=== PATIENT | female | born 1985 | race Caucasian/White ===

== ENCOUNTER 2019-11-26 05:35 | Inpatient (IN) | payer BC ==
[2019-11-25 19:21] LABS: BASOPHILS % (AUTO) 0.5 % (0.0-2.0); EOSINOPHILS # (AUTO) 0.1 K/uL (0.0-0.4); HEMATOCRIT 38.8 % (36-48); HEMOGLOBIN 13.2 g/dL (12.0-16.0); LYMPHOCYTES # (AUTO) 2.7 K/uL (1.0-5.5); LYMPHOCYTES % (AUTO) 27.8 % (20.5-51.5); MEAN CORPUSCULAR HEMOGLOBIN 32 pg (27-31); MEAN CORPUSCULAR HGB CONC 34 % (32-36); MEAN CORPUSCULAR VOLUME 95 fL (79.0-98.0); MONOCYTES # (AUTO) 0.7 K/uL (0.0-1.0); MONOCYTES % (AUTO) 6.7 % (1.7-9.3); NEUTROPHILS # (AUTO) 6.3 K/uL (1.8-7.7); PLATELET COUNT (AUTO) 169 K/uL (130-430); RED BLOOD CELL COUNT(AUTO) 4.09 MIL/uL (4.2-6.2); RED CELL DISTRIBUTION WIDTH 13.9 % (9.0-15.0); WHITE BLOOD COUNT (AUTO) 9.8 K/uL (4.8-10.8)
[2019-11-25 20:38] LABS: BILIRUBIN,URINE NEGATIVE (NEGATIVE); BLOOD, URINE NEGATIVE (NEGATIVE); CLARITY/URINE CLEAR (CLEAR); COLOR,URINE YELLOW (YELLOW); GLUCOSE,URINE NEGATIVE (NEGATIVE); KETONES,URINE NEGATIVE (NEGATIVE); LEUKOCYTE ESTERASE ,URINE NEGATIVE (NEGATIVE); NITRITE, URINE NEGATIVE (NEGATIVE); PROTEIN URINE NEGATIVE (NEGATIVE); UROBILINOGEN,URINE 0.2 (0.2-1.0)
[~2019-11-26] VITALS: Ht 162.6 cm; Wt 96.6 kg
[2019-11-26] MEDS ORDERED: LR 1,000 ML IV SCH ×2 (05:49→08:36)
[2019-11-26] MEDS ORDERED: CEFAZOLIN 2 GM IVPB PREMIX 50 ML IV ONE (06:00)
[2019-11-26 06:47] VITALS: BP_SYST 130
[2019-11-26] MEDS ORDERED: NS IRRIG SOLN 1000 ML IR ONE (07:45)
[2019-11-26] MEDS ORDERED: MORPHINE SULFATE 10MG/10ML PF AMP EP ONE (07:45)
[2019-11-26] MEDS ORDERED: BUPIVACAINE /PF 0.75% 10 ML VIAL INJ ONE (07:45)
[2019-11-26] MEDS ORDERED: LR 1,000 ML IV.SOLN IV ONE (07:45)
[2019-11-26] MEDS ORDERED: ONDANSETRON HCL 4 MG/2 ML VIAL IVP ONE (07:45)
[2019-11-26] MEDS ORDERED: OXYTOCIN/0.9 % SODIUM CHLORIDE 1,000 ML IV SCH (08:36)
[2019-11-26 08:40] VITALS: BP_SYST 116
[2019-11-26] MEDS ORDERED: TEMAZEPAM 15 MG CAPSULE PO PRN (08:45)
[2019-11-26] MEDS ORDERED: BISACODYL 10 MG/SUPPOSITORY RC PRN (08:45)
[2019-11-26] MEDS ORDERED: LANOLIN 7 GM OINT. TP PRN (08:45)
[2019-11-26] MEDS ORDERED: OXYCODONE/ACETAMINOPHEN *10*mg/325 mg TABLET PO PRN (08:45)
[2019-11-26] MEDS ORDERED: SENNOSIDES/DOCUSATE SODIUM 1 TAB TABLET(SENOKOT-S) PO PRN (08:45)
[2019-11-26] MEDS ORDERED: RHO(D) IMMUNE GLOBULIN/MALTOSE 1500 UNITS/1.3 ML (WINHRO) IM PRN (08:45)
[2019-11-26] MEDS ORDERED: ANUSOL 1 EA SUPP.RECT (PREPARATION H) RC PRN (08:45)
[2019-11-26] MEDS ORDERED: HYDROcodone/ACETAMIN 5-325 MG TAB (NORCO/ VICODIN) PO PRN (08:45)
[2019-11-26] MEDS ORDERED: OXYCODONE/ACETAMINOPHEN 5-325 TABLET PO PRN (08:45)
[2019-11-26] MEDS ORDERED: DIPH-TET-PERTUS Vaccine 0.5 ML VIAL (ADACEL) I.M. PRN (08:45)
[2019-11-26] MEDS ORDERED: DOCUSATE SODIUM 100 MG CAPSULE PO PRN (08:45)
[2019-11-26] MEDS ORDERED: MEASLES,MUMPS&RUBELLA VACC/PF 12500 UNIT/0.5 ML VIAL SUBQ PRN (08:45)
[2019-11-26] MEDS ORDERED: DIPHENHYDRAMINE INJ 50 MG/ML VIAL IVP PRN (09:48)
[2019-11-26] MEDS ORDERED: DIPHENHYDRAMINE INJ 50 MG/ML VIAL ONE (10:13)
[2019-11-26] MEDS: CEFAZOLIN 1 GM IVPB PREMIX 50 ML IV SCH ×2 (12:10→18:13)
[2019-11-26] MEDS: KETOROLAC TROMETHAMINE 30 MG VIAL IVP SCH (18:12)
[2019-11-27] MEDS: CEFAZOLIN 1 GM IVPB PREMIX 50 ML IV SCH (00:01)
[2019-11-27] MEDS: KETOROLAC TROMETHAMINE 30 MG VIAL IVP SCH ×3 (06:36→12:00)
[2019-11-27] MEDS ORDERED: KETOROLAC TROMETHAMINE 60 MG/2 ML VIAL IM ONE (06:42)
[2019-11-27 08:51] LABS: BASOPHILS % (AUTO) 0.3 % (0.0-2.0); EOSINOPHILS # (AUTO) 0.1 K/uL (0.0-0.4); EOSINOPHILS % (AUTO) 1.4 % (0.0-4.0); HEMATOCRIT 34.2 % (36-48); HEMOGLOBIN 11.5 g/dL (12.0-16.0); LYMPHOCYTES # (AUTO) 1.9 K/uL (1.0-5.5); LYMPHOCYTES % (AUTO) 21.8 % (20.5-51.5); MEAN CORPUSCULAR HEMOGLOBIN 32 pg (27-31); MEAN CORPUSCULAR HGB CONC 34 % (32-36); MEAN CORPUSCULAR VOLUME 95 fL (79.0-98.0); MONOCYTES # (AUTO) 0.6 K/uL (0.0-1.0); MONOCYTES % (AUTO) 6.2 % (1.7-9.3); NEUTROPHILS # (AUTO) 6.3 K/uL (1.8-7.7); NEUTROPHILS % (AUTO) 70.3 % (40.0-70.0); PLATELET COUNT (AUTO) 131 K/uL (130-430); RED BLOOD CELL COUNT(AUTO) 3.58 MIL/uL (4.2-6.2); WHITE BLOOD COUNT (AUTO) 8.9 K/uL (4.8-10.8)
[2019-11-27] MEDS: IBUPROFEN 600 MG TABLET PO SCH ×2 (12:42→18:18)
[2019-11-28] MEDS: IBUPROFEN 600 MG TABLET PO SCH ×3 (00:42→18:03)
[2019-11-28] MEDS: SIMETHICONE 80 MG TAB.CHEW PO PRN ×2 (09:14→12:29)
[2019-11-29] MEDS: IBUPROFEN 600 MG TABLET PO SCH ×4 (06:16→17:51)
== END 2019-11-29 18:58 | disposition home or self-care (01) | DRG 788 ==
LOC: SPU 05:35
PROVIDERS: ADMIT Specialist; ATTEND Specialist
PROC: 10D00Z1 Extraction of Products of Conception, Low, Open Approach (ICD-10-PCS; principal; 2019-11-26 07:30)
DX: O30.003 Twin pregnancy, unspecified number of placenta and unspecified number of amniotic sacs, third trimester (principal); Z37.0 Single live birth; O69.81X0 Labor and delivery complicated by cord around neck, without compression, not applicable or unspecified; Z37.2 Twins, both liveborn; Z3A.36 36 weeks gestation of pregnancy; O32.8XX1 Maternal care for other malpresentation of fetus, fetus 1
CPT/HCPCS: 36415; 81003; 85025; 86886; 86900; 86901; 88307; 90715; 94760; J0690; J1200; J1885; J2274; J2405; J2590; J3490; J7120

== ENCOUNTER 2023-07-25 21:17 | Emergency (ER) | payer BC, MEDICAID ==
[~2023-07-25] VITALS: Ht 162.6 cm; Wt 70.3 kg
[2023-07-25 21:25] VITALS: BP_SYST 134; PULSE 90; RESP 16; TEMP 97.9; O2SAT 96
[2023-07-25] MEDS ORDERED: NABU-140 PO (23:13)
[2023-07-25 23:47] VITALS: BP_SYST 129; PULSE 90; RESP 16; TEMP 97.9; O2SAT 97
== END 2023-07-25 23:47 | disposition home or self-care (01) ==
LOC: SED 21:17
DX: S92.352A Displaced fracture of fifth metatarsal bone, left foot, initial encounter for closed fracture (principal); Z79.899 Other long term (current) drug therapy; X58.XXXA Exposure to other specified factors, initial encounter; Y93.89 Activity, other specified; Y92.89 Other specified places as the place of occurrence of the external cause; Y99.8 Other external cause status
CPT/HCPCS: 99283